=== PATIENT | male | born 1960 | race Caucasian/White ===

== ENCOUNTER 2019-02-06 08:03 | Emergency (ER) | payer MEDICAID ==
[2019-02-06 08:27] VITALS: BP 117/87
--- NOTE | 2019-02-06 09:03 | EDM.PDOC ---
ED HPI GENERAL MEDICAL PROBLEM - General Chief Complaint: General Stated Complaint: DIAHREA Time Seen by Provider: 02/06/19 08:15 Source of Information: Reports: Patient History Limitations: Reports: No Limitations - History of Present Illness INITIAL COMMENTS - FREE TEXT/NARRATIVE: According to patient he claims that he has been having diarrhea for the past 2 wks now. Stools are frequent and watery. Has not noticed any blood or mucus in the stool. HE claims he has been eating his normal diet but not as well as he should. No abdominal pain or bloating. No loss of weight. He claims he has had 6 loose stools since morning. Vomited few times. No fever or chills. No other complaints. Onset: Gradual Duration: Week(s): (2), Constant, Getting Worse Severity: Mild Associated Symptoms: Reports: Nausea/Vomiting, Weakness. Denies: Confusion, Chest Pain, Cough, Diaphoresis, Fever/Chills, Rash, Seizure, Shortness of Breath , Syncope - Related Data Allergies Allergy/AdvReac Type Severity Reaction Status Date / Time No Known Allergies Allergy Verified 06/05/15 14:47 Home Meds: Home Meds Metoprolol Tartrate [Lopressor] 25 mg PO BID 05/25/13 [History] Simvastatin 40 mg PO DAILY 05/25/13 [History] Celecoxib [CeleBREX] 100 mg PO BID 06/05/15 [History] Pregabalin [Lyrica] 150 mg PO BID 06/05/15 [History] Past Medical History HEENT History: Reports: Sinusitis Neurological History: Reports: Migraines Psychiatric History: Reports: Addiction, Anxiety, Bipolar, Depression - Infectious Disease History Infectious Disease History: Reports: Chicken Pox, Mumps ED ROS GENERAL - Review of Systems Review Of Systems: See Below Constitutional: Reports: Weakness. Denies: Fever, Chills, Night Sweats, Diaphoresis HEENT: Denies: Ear Pain, Rhinitis, Throat Pain Respiratory: Denies: Shortness of Breath, Pleuritic Chest Pain, Cough, Sputum Cardiovascular: Denies: Chest Pain, Lightheadedness GI/Abdominal: Reports: Diarrhea, Flatus, Nausea, Vomiting. Denies: Abdominal Pain, Constipation, Distension : Denies: Flank Pain, Frequency Musculoskeletal: Denies: Joint Pain, Joint Swelling Skin: Denies: Bruising, Pruritis, Rash Neurological: Denies: Confusion, Dizziness, Headache, Numbness, Tingling Psychiatric: Denies: Agitation, Anxiety, Confusion, Cravings, Depression ED EXAM, GENERAL - Physical Exam Exam: See Below Exam Limited By: No Limitations General Appearance: Alert, WD/WN, No Apparent Distress Eye Exam: Bilateral Eye: EOMI, PERRL Ears: Normal External Exam, Normal Canal, Hearing Grossly Normal, Normal TMs Ear Exam: Bilateral Ear: Auricle Normal, Canal Normal, TM normal Nose: Normal Inspection, Normal Mucosa, No Blood Throat/Mouth: Normal Inspection, Normal Lips, Normal Teeth, Normal Gums, Normal Oropharynx, Normal Voice, No Airway Compromise Head: Atraumatic, Normocephalic Neck: Normal Inspection, Supple, Non-Tender, Full Range of Motion Respiratory/Chest: No Respiratory Distress, Lungs Clear, Normal Breath Sounds, No Accessory Muscle Use, Chest Non-Tender Cardiovascular: Normal Peripheral Pulses, Regular Rate, Rhythm, No Edema, No Gallop, No JVD, No Murmur, No Rub GI/Abdominal: Soft, Non-Tender, No Organomegaly, No Distention, No Abnormal Bruit, No Mass, Abnormal Bowel Sounds (slightly hyperactive bowel sounds) Extremities: Normal Inspection, Normal Range of Motion, Non-Tender, Normal Capillary Refill, No Pedal Edema Neurological: Alert, Oriented, CN II-XII Intact, Normal Cognition, Normal Gait, Normal Reflexes, No Motor/Sensory Deficits Course - Vital Signs Text/Narrative:: Pt has had 2 wks history of loose stools and vomiting. His hydration appears appropriate. On clinical exam slightly hyperactive bowel sounds. Pt's CBC is normal . His CMP shows normal electrolytes with normal renal functions( BUN of 12 and Creat of 1.1) and normal liver liver functions.This does not appear like bacterial dysentery, more like on going viral gastroenteritis with normal hydration. I have advised patient some diet changes. He should avoid meat and mild products. Also increase consumption of apples and bananas, which should help form solid stool. Will prescribe zofran 4mg 3 times daily for nausea. Also considering that the diarrhea has been going on for 2 wks should get stool culture done. Feco-oral contamination can be a cause, advised good hand washing. Followup if lethargic, weakness, decreased oral intake or decreased urinary output. Pt has run out of his simvastatin and cetirizine, which were refilled in the emergency room for 1 month. Last Recorded V/S: Last Vital Signs Temp 98.2 F 02/06/19 08:24 Pulse 89 02/06/19 08:24 Resp 16 02/06/19 08:24 BP 117/87 02/06/19 08:24 Pulse Ox 98 02/06/19 08:24 - Orders/Labs/Meds Labs: Laboratory Tests 02/06/19 02/06/19 Range/Units 08:20 08:20 WBC 9.9 (4.0-11.0) K/uL RBC 6.20 (4.50-6.50) M/uL Hgb 18.3 H* (13.0-18.0) g/dL Hct 52.2 (40.0-54.0) % MCV 84 (76-96) fL MCH 29.5 (27.0-32.0) pg MCHC 35.1 H (31.0-35.0) g/dL RDW 15.8 (11.0-16.0) % Plt Count 164 D (150-400) K/uL MPV 11.4 H (6.0-10.0) fL Neut % (Auto) 65.8 (45.0-70.0) % Lymph % (Auto) 18.0 L (20.0-40.0) % [place] % (Auto) 5.5 (3.0-10.0) % Eos % (Auto) 10.4 H (1.0-5.0) % Baso % (Auto) 0.3 (0.0-0.5) % Neut # (Auto) 6.53 (2.00-7.50) K/uL Lymph # (Auto) 1.79 (1.50-4.00) K/uL [place] # (Auto) 0.55 (0.20-0.80) K/uL Eos # (Auto) 1.03 H (0.04-0.40) K/uL Baso # (Auto) 0.03 (0.02-0.10) K/uL Sodium 143 (136-145) mmol/L Potassium 3.7 (3.5-5.1) mmol/L Chloride 105 (98-107) mmol/L Carbon Dioxide 26.7 (21.0-32.0) mmol/L Anion Gap 15.0 (5.0-15.0) mmol/L BUN 12 (8-26) mg/dL Creatinine 1.14 D (0.70-1.30) mg/dL Est Cr Clr Drug Dosing 83.39 mL/min Estimated GFR (MDRD) > 60 (>60) MLS/MIN BUN/Creatinine Ratio 10.5 (6-25) Glucose 112 H (74-100) mg/dL Calcium 9.1 (8.5-10.1) mg/dL Total Bilirubin 0.7 D (0.0-1.0) mg/dL AST 49 H (15-37) U/L ALT 95 H (12-78) U/L Alkaline Phosphatase 105 (46-116) U/L Total Protein 7.1 (6.4-8.2) g/dL Albumin 3.7 (3.4-5.0) g/dL Globulin 3.4 (2.2-4.2) g/dL Albumin/Globulin Ratio 1.1 (0.8-2.0) Departure - Departure Time of Disposition: 09:15 Disposition: Home, Self-Care 01 Condition: Fair Clinical Impression: Viral gastroenteritis - Discharge Information *PRESCRIPTION DRUG MONITORING PROGRAM REVIEWED*: Not Applicable *COPY OF PRESCRIPTION DRUG MONITORING REPORT IN PATIENT RUFUS: Not Applicable Instructions: Viral Gastroenteritis, Adult, [id number] Referrals: PCP,None [Primary Care Provider] - Forms: ED Department Discharge Additional Instructions: Pt has had 2 wks history of loose stools and vomiting. His hydration appears appropriate. On clinical exam slightly hyperactive bowel sounds. Pt's CBC is normal . His CMP shows normal electrolytes with normal renal functions( BUN of 12 and Creat of 1.1) and normal liver liver functions.This does not appear like bacterial dysentery, more like on going viral gastroenteritis with normal hydration. I have advised patient some diet changes. He should avoid meat and mild products. Also increase consumption of apples and bananas, which should help form solid stool. Will prescribe zofran 4mg 3 times daily for nausea. Also considering that the diarrhea has been going on for 2 wks should get stool culture done. Feco-oral contamination can be a cause, advised good hand washing. Followup if lethargic, weakness, decreased oral intake or decreased urinary output. Pt has run out of his simvastatin and cetirizine, which were refilled in the emergency room for 1 month. - Problem List & Annotations (1) Viral gastroenteritis SNOMED Code(s): 708262187 Code(s): A08.4 - VIRAL INTESTINAL INFECTION, UNSPECIFIED Status: Acute Current Visit: Yes - Problem List Review Problem List Initiated/Reviewed/Updated: Yes - Assessment/Plan Assessment:: Viral Gastroenteritis Plan: Pt has had 2 wks history of loose stools and vomiting. His hydration appears appropriate. On clinical exam slightly hyperactive bowel sounds. Pt's CBC is normal . His CMP shows normal electrolytes with normal renal functions( BUN of 12 and Creat of 1.1) and normal liver liver functions.This does not appear like bacterial dysentery, more like on going viral gastroenteritis with normal hydration. I have advised patient some diet changes. He should avoid meat and mild products. Also increase consumption of apples and bananas, which should help form solid stool. Will prescribe zofran 4mg 3 times daily for nausea. Also considering that the diarrhea has been going on for 2 wks should get stool culture done. Feco-oral contamination can be a cause, advised good hand washing. Followup if lethargic, weakness, decreased oral intake or decreased urinary output. Pt has run out of his simvastatin and cetirizine, which were refilled in the emergency room for 1 month.
== END 2019-02-06 09:22 | disposition home or self-care (01) ==
LOC: LB.ED 08:03
DX: A08.4 Viral intestinal infection, unspecified (principal); F31.9 Bipolar disorder, unspecified; F41.9 Anxiety disorder, unspecified; F32.9 Major depressive disorder, single episode, unspecified; Z79.899 Other long term (current) drug therapy
CPT/HCPCS: 36415; 80053; 85025; 99283

== ENCOUNTER 2019-06-30 08:53 | Emergency (ER) | payer MEDICAID ==
[2019-06-30 10:20] VITALS: BP 122/70; PULSE 74
--- NOTE | 2019-06-30 13:00 | ER ---
HISTORY OF PRESENT ILLNESS: A 58-year-old male, here with complaints of pain in the left thigh area pointing to the lateral side of the mid thigh. He states this started about 4 a.m. this morning. It seems like it is hurting more when the patient raises his leg. When he lowers his leg, the pain gets better and standing seems to be okay, just with some dull aching. The patient denies any injury to this area. He is concerned about a blood clot. He has no recent history of illness or being bedridden. He has not taken any long car trips or any sort of situation where he has been immobile or very sedentary for several hours or longer. The patient denies any shortness of breath. He has not been running a fever and does not feel sick. OBJECTIVE: GENERAL APPEARANCE: The patient is awake and alert. No obvious distress. VITAL SIGNS: Reviewed. Blood pressure 122/70. He is afebrile, pulse 74, respirations 16. EXTREMITIES: Examining the right lateral thigh reveals the skin is intact. There is no swelling or discoloration with palpation of the midthigh area. There is just minimal tenderness. NEUROLOGIC: The patient is able to stand and walk with a normal smooth gait at this time. LABORATORY DATA AND X-RAY: CBC is normal. Hemoglobin is good. D-dimer is normal at 383, and a basic metabolic panel shows that his sodium and potassium levels are good. Blood sugar is 116. DIAGNOSIS: Myalgia of the right thigh. TREATMENT PLAN: I advised the patient to use heat. Activity as tolerated. If his symptoms do not improve over the next couple of days, he should follow up with his primary care provider for some imaging studies. CRS/MODL /[id number]
== END 2019-06-30 10:35 | disposition home or self-care (01) ==
LOC: LB.ED 08:53
DX: M79.10 Myalgia, unspecified site (principal)
CPT/HCPCS: 36415; 80048; 85025; 85379; 99283

== ENCOUNTER 2019-12-20 08:25 | Emergency (ER) | payer MEDICAID ==
[2019-12-20] MEDS ORDERED: Magnesium Citrate Solution 296 ML Bottle ONE (08:30)
--- NOTE | 2019-12-20 09:09 | EDM.PDOC ---
ED HPI GENERAL MEDICAL PROBLEM - General Chief Complaint: Abdominal Pain Stated Complaint: CONSTIPATION UNABLE TO URINATE Time Seen by Provider: 12/20/19 08:45 Source of Information: Reports: Patient History Limitations: Reports: No Limitations - History of Present Illness INITIAL COMMENTS - FREE TEXT/NARRATIVE: pt presents to the ER with complaint of constipation and urinary retention since last night. pt states he has been experiencing these symptoms since yesterday with most recent BM yesterday morning. pt states "this is the most constipated I've been in years" with coinciding intermittent nausea. pain in lower abdomen increases with palpation. he denies fever, chills, back pain, appetite change, change to fluid consumption. Abdominal Pain Score (Numeric/FACES): 7 - Related Data Allergies Allergy/AdvReac Type Severity Reaction Status Date / Time No Known Allergies Allergy Verified 06/05/15 14:47 Home Meds: Home Meds Metoprolol Tartrate [Lopressor] 25 mg PO BID 05/25/13 [History] Simvastatin 40 mg PO DAILY 05/25/13 [History] Aspirin 325 mg PO DAILY 06/30/19 [History] Cetirizine [ZyrTEC] 10 mg PO DAILY PRN 06/30/19 [History] Ibuprofen 600 mg PO BID PRN 06/30/19 [History] Past Medical History HEENT History: Reports: Sinusitis Neurological History: Reports: Migraines Psychiatric History: Reports: Addiction, Anxiety, Bipolar, Depression - Infectious Disease History Infectious Disease History: Reports: Chicken Pox, Measles, Mumps - Past Surgical History Other Musculoskeletal Surgeries/Procedures:: surgery knees bilaterally Social & Family History - Family History Family Medical History: Noncontributory - Caffeine Use Caffeine Use: Reports: Coffee ED ROS GENERAL - Review of Systems Review Of Systems: Comprehensive ROS is negative, except as noted in HPI. ED EXAM, GENERAL - Physical Exam Exam: See Below Exam Limited By: No Limitations General Appearance: Alert, WD/WN, No Apparent Distress Eye Exam: Bilateral Eye: EOMI, PERRL Throat/Mouth: Normal Inspection, Normal Teeth, Normal Oropharynx Respiratory/Chest: No Respiratory Distress, Lungs Clear, Normal Breath Sounds, No Accessory Muscle Use Cardiovascular: Normal Peripheral Pulses, Regular Rate, Rhythm, No Edema, No Gallop Peripheral Pulses: 2+: Radial (L), Radial (R), Posterior Tibial (L), Posterior Tibial (R) GI/Abdominal: Normal Bowel Sounds, Soft, No Organomegaly, No Distention (no guarding), Tender (suprapubic TTP) Back Exam: Normal Inspection, Full Range of Motion Extremities: Normal Inspection, Normal Range of Motion, Non-Tender Neurological: Alert, Oriented, CN II-XII Intact, Normal Cognition Psychiatric: Normal Affect, Normal Mood Skin Exam: Warm, Dry, Intact Lymphatic: No Adenopathy Course - Vital Signs Last Recorded V/S: Last Vital Signs Temp 95 F L 12/20/19 08:43 Pulse 81 12/20/19 08:43 Resp 16 12/20/19 08:43 BP 154/89 H 12/20/19 08:43 Pulse Ox 99 12/20/19 08:43 - Orders/Labs/Meds Orders: Active Orders 24 hr Category Date Time Status Bladder Scan [RC] ASDIRECTED Care 12/20/19 09:00 Active Insert Urinary Catheter [OM.PC] Q24H Care 12/20/19 09:00 Ordered Urinary Catheter Assessment [RC] ASDIRECTED Care 12/20/19 09:00 Active Labs: Laboratory Tests 12/20/19 12/20/19 12/20/19 Range/Units 09:00 09:00 09:00 WBC 5.9 D (4.0-11.0) K/uL RBC 4.89 (4.50-6.50) M/uL Hgb 14.8 (13.0-18.0) g/dL Hct 44.0 (40.0-54.0) % MCV 90 (76-96) fL MCH 30.3 (27.0-32.0) pg MCHC 33.6 (31.0-35.0) g/dL RDW 14.3 (11.0-16.0) % Plt Count 149 L (150-400) K/uL MPV 11.4 H (6.0-10.0) fL Neut % (Auto) 56.1 (45.0-70.0) % Lymph % (Auto) 28.6 (20.0-40.0) % [place] % (Auto) 10.2 H (3.0-10.0) % Eos % (Auto) 4.9 (1.0-5.0) % Baso % (Auto) 0.2 (0.0-0.5) % Neut # (Auto) 3.29 (2.00-7.50) K/uL Lymph # (Auto) 1.68 (1.50-4.00) K/uL [place] # (Auto) 0.60 (0.20-0.80) K/uL Eos # (Auto) 0.29 (0.04-0.40) K/uL Baso # (Auto) 0.01 L (0.02-0.10) K/uL Sodium 141 (136-145) mmol/L Potassium 4.0 (3.5-5.1) mmol/L Chloride 106 (98-107) mmol/L Carbon Dioxide 29.1 D (21.0-32.0) mmol/L Anion Gap 9.9 (5.0-15.0) mmol/L BUN 14 (8-26) mg/dL Creatinine 0.92 (0.70-1.30) mg/dL Est Cr Clr Drug Dosing TNP Estimated GFR (MDRD) > 60 (>60) MLS/MIN BUN/Creatinine Ratio 15.2 (6-25) Glucose 105 H (74-100) mg/dL Calcium 8.9 (8.5-10.1) mg/dL Total Bilirubin 0.6 (0.0-1.0) mg/dL AST 45 H (15-37) U/L ALT 69 (12-78) U/L Alkaline Phosphatase 81 (46-116) U/L Total Protein 6.8 (6.4-8.2) g/dL Albumin 3.6 (3.4-5.0) g/dL Globulin 3.2 (2.2-4.2) g/dL Albumin/Globulin Ratio 1.1 (0.8-2.0) Urine Color Urine Appearance (CLEAR) Urine pH (5.0-8.0) Ur Specific [place] (1.003-1.030) Urine Protein (NEGATIVE) mg/dL Urine Glucose (UA) (NEGATIVE) mg/dL Urine Ketones (NEGATIVE) mg/dL Urine Occult Blood (NEGATIVE) Urine Nitrite (NEGATIVE) Urine Bilirubin (NEGATIVE) Urine Urobilinogen (0.2-1.0) E.U./dL Ur Leukocyte Esterase (NEGATIVE) Ethyl Alcohol < 3.0 (<3.0) mg/dL 12/20/19 Range/Units 09:28 WBC (4.0-11.0) K/uL RBC (4.50-6.50) M/uL Hgb (13.0-18.0) g/dL Hct (40.0-54.0) % MCV (76-96) fL MCH (27.0-32.0) pg MCHC (31.0-35.0) g/dL RDW (11.0-16.0) % Plt Count (150-400) K/uL MPV (6.0-10.0) fL Neut % (Auto) (45.0-70.0) % Lymph % (Auto) (20.0-40.0) % [place] % (Auto) (3.0-10.0) % Eos % (Auto) (1.0-5.0) % Baso % (Auto) (0.0-0.5) % Neut # (Auto) (2.00-7.50) K/uL Lymph # (Auto) (1.50-4.00) K/uL [place] # (Auto) (0.20-0.80) K/uL Eos # (Auto) (0.04-0.40) K/uL Baso # (Auto) (0.02-0.10) K/uL Sodium (136-145) mmol/L Potassium (3.5-5.1) mmol/L Chloride (98-107) mmol/L Carbon Dioxide (21.0-32.0) mmol/L Anion Gap (5.0-15.0) mmol/L BUN (8-26) mg/dL Creatinine (0.70-1.30) mg/dL Est Cr Clr Drug Dosing Estimated GFR (MDRD) (>60) MLS/MIN BUN/Creatinine Ratio (6-25) Glucose (74-100) mg/dL Calcium (8.5-10.1) mg/dL Total Bilirubin (0.0-1.0) mg/dL AST (15-37) U/L ALT (12-78) U/L Alkaline Phosphatase (46-116) U/L Total Protein (6.4-8.2) g/dL Albumin (3.4-5.0) g/dL Globulin (2.2-4.2) g/dL Albumin/Globulin Ratio (0.8-2.0) Urine Color Yellow Urine Appearance Clear (CLEAR) Urine pH 6.0 (5.0-8.0) Ur Specific [place] 1.020 (1.003-1.030) Urine Protein Negative (NEGATIVE) mg/dL Urine Glucose (UA) Negative (NEGATIVE) mg/dL Urine Ketones Negative (NEGATIVE) mg/dL Urine Occult Blood Negative (NEGATIVE) Urine Nitrite Negative (NEGATIVE) Urine Bilirubin Negative (NEGATIVE) Urine Urobilinogen 0.2 (0.2-1.0) E.U./dL Ur Leukocyte Esterase Negative (NEGATIVE) Ethyl Alcohol (<3.0) mg/dL Departure - Departure Time of Disposition: 10:23 Disposition: Home, Self-Care 01 Condition: Good Clinical Impression: Constipation Qualifiers: Constipation type: unspecified constipation type Qualified Code(s): K59.00 - Constipation, unspecified - Discharge Information *PRESCRIPTION DRUG MONITORING PROGRAM REVIEWED*: Not Applicable *COPY OF PRESCRIPTION DRUG MONITORING REPORT IN PATIENT RUFUS: Not Applicable Instructions: Constipation, Adult Referrals: PCP,None [Primary Care Provider] - Forms: ED Department Discharge, ED Return to Work/School Form Additional Instructions: drink at least 100oz of water a day when you get home, drink the whole bottle of magnesium citrate as directed follow up in the clinic in a week or so return to the ER if symptoms persist (you don't poop in 12 hours after taking the mag citrate), or worsen at any time Sepsis Event Note (ED) - Focused Exam Vital Signs: Vital Signs Temp Pulse Resp BP Pulse Ox 12/20/19 08:43 95 F L 81 16 154/89 H 99 - Problem List & Annotations (1) Constipation SNOMED Code(s): 42006430 Code(s): K59.00 - CONSTIPATION, UNSPECIFIED Status: Acute Current Visit: Yes Qualifiers: Constipation type: unspecified constipation type Qualified Code(s): K59.00 - Constipation, unspecified - Problem List Review Problem List Initiated/Reviewed/Updated: Yes - My Orders Last 24 Hours: My Active Orders 12/20/19 09:00 Bladder Scan [RC] ASDIRECTED Insert Urinary Catheter [OM.PC] Q24H Urinary Catheter Assessment [RC] ASDIRECTED - Assessment/Plan Last 24 Hours: My Active Orders 12/20/19 09:00 Bladder Scan [RC] ASDIRECTED Insert Urinary Catheter [OM.PC] Q24H Urinary Catheter Assessment [RC] ASDIRECTED Assessment:: assessment: constipation plan: mag citrate constipation education and return precaution as discussed. increase water intake. other differentials considered opioid constipation, gastroenteritis, IBS
[2019-12-20 15:10] VITALS: BP 154/89; PULSE 81
== END 2019-12-20 10:40 | disposition home or self-care (01) ==
LOC: LB.ED 08:25
DX: K59.00 Constipation, unspecified (principal); Z79.82 Long term (current) use of aspirin; Z79.899 Other long term (current) drug therapy
CPT/HCPCS: 36415; 51702; 51798; 80053; 80307; 81003; 85025; 99283; A9270

== ENCOUNTER 2021-04-06 12:35 | Emergency (ER) | payer MEDICAID ==
[2021-04-06 14:38] VITALS: BP 146/82; PULSE 60
--- NOTE | 2021-04-06 15:39 | EDM.PDOC ---
ED HPI GENERAL MEDICAL PROBLEM - General Chief Complaint: Respiratory Problem Stated Complaint: CHEST PAIN/ COVID SYPMTOMS Time Seen by Provider: 04/06/21 13:20 Source of Information: Reports: Patient History Limitations: Reports: No Limitations - History of Present Illness INITIAL COMMENTS - FREE TEXT/NARRATIVE: This patient presents to the emergency department for evaluation of cough and chest pain. He states he began feeling unwell several days ago, approximately April 02. On that day he felt achy, may be that he had a fever, with a cough and runny nose. He seemed a little better over the weekend and then began feeling ill again yesterday. Today he was seen in the clinic because he had chest pain along with a cough. He was referred to the ER for evaluation for Covid. He did have a Covid swab prior to entry into the building which was negative. He states he has not had a fever in the past couple of days but has continued to cough and sometimes has chest pain along with a cough. His appetite is decreased and he has had 1 vomiting episode today. He also is complaining of nasal congestion and a runny nose. He denies other concerns or complaints. - Related Data Allergies Allergy/AdvReac Type Severity Reaction Status Date / Time No Known Allergies Allergy Verified 04/06/21 14:23 Home Meds: Home Meds Metoprolol Tartrate [Lopressor] 25 mg PO BID 05/25/13 [History] Simvastatin 40 mg PO DAILY 05/25/13 [History] Aspirin 325 mg PO DAILY 06/30/19 [History] Cetirizine [ZyrTEC] 10 mg PO DAILY PRN 06/30/19 [History] Ibuprofen 600 mg PO BID PRN 06/30/19 [History] Past Medical History HEENT History: Reports: Sinusitis Cardiovascular History: Reports: High Cholesterol, Hypertension Gastrointestinal History: Reports: GERD Musculoskeletal History: Reports: Back Pain, Chronic Neurological History: Reports: Migraines Psychiatric History: Reports: Addiction, Anxiety, Bipolar, Depression - Infectious Disease History Infectious Disease History: Reports: Chicken Pox, Measles, Mumps - Past Surgical History HEENT Surgical History: Reports: Eye Surgery, Other (See Below) Other HEENT Surgeries/Procedures: Prosthetic L eye Other Musculoskeletal Surgeries/Procedures:: surgery knees bilaterally Social & Family History - Family History Family Medical History: No Pertinent Family History - Tobacco Use Tobacco Use Status *Q: Current Every Day Tobacco User Years of Tobacco use: 45 Packs/Tins Daily: 1 - Caffeine Use Caffeine Use: Reports: Coffee - Recreational Drug Use Recreational Drug Use: No ED ROS GENERAL - Review of Systems Review Of Systems: Comprehensive ROS is negative, except as noted in HPI. ED EXAM, GENERAL - Physical Exam Exam: See Below Exam Limited By: No Limitations General Appearance: No Apparent Distress Eye Exam: Bilateral Eye: PERRL Ears: Normal External Exam, Normal TMs Nose: Normal Inspection, Nasal Drainage, Clear Rhinorrhea Throat/Mouth: Normal Inspection, Other (Posterior pharynx erythematous.) Head: Atraumatic, Normocephalic Neck: Normal Inspection, Full Range of Motion Respiratory/Chest: No Respiratory Distress, No Accessory Muscle Use, Other (Mild inspiratory and expiratory wheezes in all wright.) Cardiovascular: Regular Rate, Rhythm Back Exam: Normal Inspection Extremities: Normal Inspection, Normal Range of Motion Neurological: Alert, Oriented Course - Vital Signs Last Recorded V/S: Last Vital Signs Temp 36.6 C 04/06/21 13:10 Pulse 60 04/06/21 13:10 Resp 18 04/06/21 13:10 BP 146/82 H 04/06/21 13:10 Pulse Ox 98 04/06/21 13:10 - Orders/Labs/Meds Orders: Active Orders 24 hr Category Date Time Status Chest 2V [CR] Stat Exams 04/06/21 14:38 Taken Labs: Laboratory Tests 04/06/21 Range/Units 13:10 SARS CoV-2 RNA Rapid TYLER Negative - Re-Assessments/Exams Free Text/Narrative Re-Assessment/Exam: This patient presents to the emergency department for evaluation of cough. This history and clinical findings are most consistent with an upper respiratory tract infection that is non-Covid in nature. It is likely another type of viral illness. At this time there are no signs of serious bacterial infection such as an otitis media, retropharyngeal abscess, epiglottitis, peritonsillar abscess, strep pharyngitis, pneumonia, sinusitis, meningitis, or bacteremia. The chest x-ray was done which was negative for acute findings. Given his lack of fever, no hypoxia no respiratory distress I do not feel he needs admission to the hospital at this time. He states that he does not have chest pain except when coughing. He has no concerning gastrointestinal symptoms at this point and no signs of dehydration. He was instructed to follow-up with his primary care provider as needed. 04/06/21 15:37 Departure - Departure Time of Disposition: 15:00 Disposition: Home, Self-Care 01 Condition: Good Clinical Impression: Upper respiratory tract infection - Discharge Information Referrals: PCP,None [Primary Care Provider] - Forms: ED Department Discharge Sepsis Event Note (ED) - Focused Exam Vital Signs: Vital Signs Temp Pulse Resp BP Pulse Ox 04/06/21 13:10 36.6 C 60 18 146/82 H 98 - My Orders Last 24 Hours: My Active Orders 04/06/21 14:38 Chest 2V [CR] Stat - Assessment/Plan Last 24 Hours: My Active Orders 04/06/21 14:38 Chest 2V [CR] Stat
--- NOTE | 2021-04-06 17:50 | CR ---
DATE OF SERVICE: 04/06/21 CLINICAL DATA: cough, wheeze, COVID (-) PA AND LATERAL CHEST: Comparison is made to a prior exam dated 01/09/14. The heart size is normal. There is a poorly defined ground glass opacity within the right mid lung lateral to the right hilum suspicious for viral pneumonia. No other infiltrates. No consolidation. No pneumothorax. No pleural effusions. The heart size is normal. There is calcification of the aortic arch. There is degenerative disc disease throughout the thoracic spine. [id number] MTDD
== END 2021-04-06 15:08 | disposition home or self-care (01) ==
LOC: LB.ED 12:35
DX: J06.9 Acute upper respiratory infection, unspecified (principal); E78.00 Pure hypercholesterolemia, unspecified; I10 Essential (primary) hypertension; K21.9 Gastro-esophageal reflux disease without esophagitis; Z72.0 Tobacco use; Z79.82 Long term (current) use of aspirin; Z79.899 Other long term (current) drug therapy; Z20.822 Contact with and (suspected) exposure to COVID-19
CPT/HCPCS: 71046; 99283-25; U0002

== ENCOUNTER 2022-12-06 11:02 | Emergency (ER) | payer MEDICAID ==
[2022-12-06] MEDS ORDERED: LORazepam 2 MG/ML SDV IVPUSH ONE ×2 (11:40→13:22)
[2022-12-06] MEDS ORDERED: Sodium Chloride 0.9% 1,000 ML IV ONE (11:43)
[2022-12-06] MEDS ORDERED: Sodium Chloride 0.9% 10 ML Syringe FLUSH PRN (11:55)
[2022-12-06] MEDS ORDERED: Ketamine 200 MG/20 ML MDV IM ONE (11:56)
[2022-12-06 12:01] LABS: HEMATOCRIT 43.6 % (40.0-54.0); HEMOGLOBIN 15.3 g/dL (13.0-18.0); MEAN CORPUSCULAR HGB CONC 35.1 g/dL (31.0-35.0); MEAN PLATELET VOLUME 10.1 fL (6.0-10.0); RED BLOOD CELL COUNT 4.78 M/uL (4.50-6.50); RED CELL DISTRIBUTION WIDTH 15.9 % (11.0-16.0); WHITE BLOOD CELL COUNT,WBC 8.5 K/uL (4.0-11.0)
[2022-12-06 12:15] LABS: A/G RATIO 0.9 (0.8-2.0); ALANINE AMINOTRANSFERASE,ALT 74 U/L (12-78); ALBUMIN 3.2 g/dL (3.4-5.0); ALKALINE PHOSPHATASE 122 U/L (46-116); BILIRUBIN TOTAL 0.3 mg/dL (0.0-1.0); BLOOD UREA NITROGEN,BUN 17 mg/dL (8-26); CALCIUM 8.3 mg/dL (8.5-10.1); CARBON DIOXIDE,CO2 27.5 mmol/L (21.0-32.0); CHLORIDE,CL 107 mmol/L (98-107); CREATININE 0.63 mg/dL (0.70-1.30); ESTIMATED GFR 107 mL/min (>60); GLUCOSE RANDOM 89 mg/dL (74-100); MAGNESIUM 1.5 mg/dL (1.8-2.4); PHOSPHORUS 2.9 mg/dL (2.5-4.9); POTASSIUM,K 3.5 mmol/L (3.5-5.1); PROTEIN TOTAL,TP 6.6 g/dL (6.4-8.2); SODIUM,NA 143 mmol/L (136-145)
[2022-12-06] MEDS ORDERED: Thiamine 100 MG in Sodium Chloride 0.9% 100 ML IV ONE (12:34)
[2022-12-06 13:18] LABS: APPEARANCE,URINE CLEAR (CLEAR); BILIRUBIN,URINE NEGATIVE (NEGATIVE); COLOR,URINE YELLOW; GLUCOSE,URINE NEGATIVE (NEGATIVE); KETONES,URINE NEGATIVE (NEGATIVE); LEUKOCYTE ESTERASE,URINE NEGATIVE (NEGATIVE); NITRITE,URINE NEGATIVE (NEGATIVE); OCCULT BLOOD,URINE NEGATIVE (NEGATIVE); PROTEIN,URINE NEGATIVE (NEGATIVE); UROBILINOGEN,URINE 0.2 E.U./dL (0.2-1.0)
[2022-12-06 13:22] VITALS: BP 142/114; PULSE 105
[2022-12-06 13:25] LABS: AMPHETAMINES SCREEN, URINE NEGATIVE (NEGATIVE); BARBITURATE SCREEN,URINE NEGATIVE (NEGATIVE); BENZODIAZEPINES SCREEN,URINE NEGATIVE (NEGATIVE); METHADONE SCREEN, URINE NEGATIVE (NEGATIVE); METHAMPHETAMINES SCREEN, URINE NEGATIVE (NEGATIVE); OXYCODONE SCREEN,URINE NEGATIVE (NEGATIVE); THC SCREEN,URINE 50 NG/ML POSITIVE (NEGATIVE)
[2022-12-06] MEDS ORDERED: Sodium Chloride 0.9% 1,000 ML IV SCH (15:00)
[2022-12-06] MEDS: LORazepam 2 MG/ML SDV IVPUSH PRN ×2 (16:18→18:29)
[2022-12-06 16:47] LABS: ASPARTATE AMNIOTRANSFERASE,AST 99 U/L (15-37)
[2022-12-06] MEDS ORDERED: Loratadine 10 MG Tab PO ONE (20:00)
[2022-12-06] MEDS ORDERED: LORazepam 2 MG/ML SDV IM ONE (20:31)
== END 2022-12-06 21:10 ==
LOC: LB.ED 11:02
DX: F10.10 Alcohol abuse, uncomplicated (principal); E78.00 Pure hypercholesterolemia, unspecified; I10 Essential (primary) hypertension; K21.9 Gastro-esophageal reflux disease without esophagitis; Z79.899 Other long term (current) drug therapy; Z79.82 Long term (current) use of aspirin; Y90.8 Blood alcohol level of 240 mg/100 ml or more
CPT/HCPCS: 36415; 80053; 80307; 81003; 83605; 83735; 84100; 85027; 96372; 96374; 96376; 99285; A9270; J2060; J3411; J3490; J7030

== ENCOUNTER 2022-12-14 11:21 | Emergency (ER) | payer MEDICAID ==
[2022-12-14 12:29] LABS: APPEARANCE,URINE CLEAR (CLEAR); BILIRUBIN,URINE NEGATIVE (NEGATIVE); COLOR,URINE YELLOW; GLUCOSE,URINE NEGATIVE (NEGATIVE); KETONES,URINE NEGATIVE (NEGATIVE); LEUKOCYTE ESTERASE,URINE NEGATIVE (NEGATIVE); NITRITE,URINE NEGATIVE (NEGATIVE); OCCULT BLOOD,URINE NEGATIVE (NEGATIVE); PH,URINE 5.5 (5.0-8.0); PROTEIN,URINE NEGATIVE (NEGATIVE); UROBILINOGEN,URINE 0.2 E.U./dL (0.2-1.0)
[2022-12-14 12:33] LABS: RBC,URINE NOT SEEN /HPF; WBC,URINE 0-5 /HPF
[2022-12-14 12:36] VITALS: BP 144/90; PULSE 100
[2022-12-14] MEDS: Sodium Phosphate,Monobasic/Sodium Phosphate,Dibasic Enema 133 ML Bottle RECTAL ONE (12:55)
== END 2022-12-14 14:01 | disposition home or self-care (01) ==
LOC: LB.ED 11:21
DX: K59.00 Constipation, unspecified (principal); N40.1 Benign prostatic hyperplasia with lower urinary tract symptoms; E78.00 Pure hypercholesterolemia, unspecified; I10 Essential (primary) hypertension; K21.9 Gastro-esophageal reflux disease without esophagitis; Z79.899 Other long term (current) drug therapy; Z79.82 Long term (current) use of aspirin
CPT/HCPCS: 74019; 81001; 99283; A9270-GY

== ENCOUNTER 2023-02-06 13:40 | Emergency (ER) | payer MEDICAID ==
[2023-02-06] MEDS ORDERED: Sodium Chloride 0.9% 1,000 ML IV ONE (14:00)
[2023-02-06 14:31] LABS: APPEARANCE,URINE CLEAR (CLEAR); BILIRUBIN,URINE NEGATIVE (NEGATIVE); COLOR,URINE YELLOW; GLUCOSE,URINE NEGATIVE (NEGATIVE); KETONES,URINE 40 mg/dL (NEGATIVE); LEUKOCYTE ESTERASE,URINE NEGATIVE (NEGATIVE); NITRITE,URINE NEGATIVE (NEGATIVE); OCCULT BLOOD,URINE TRACE-LYSED (NEGATIVE); PROTEIN,URINE TRACE mg/dL (NEGATIVE); UROBILINOGEN,URINE 0.2 E.U./dL (0.2-1.0)
[2023-02-06 14:34] LABS: BASOPHILS ABSOLUTE AUTO 0.04 K/uL (0.02-0.10); BASOPHILS PERCENT AUTO 0.5 % (0.0-0.5); EOSINOPHILS ABSOLUTE AUTO 0.05 K/uL (0.04-0.40); EOSINOPHILS PERCENT AUTO 0.6 % (1.0-5.0); HEMATOCRIT 45.1 % (40.0-54.0); HEMOGLOBIN 15.7 g/dL (13.0-18.0); LYMPHOCYTES ABSOLUTE AUTO 1.92 K/uL (1.50-4.00); LYMPHOCYTES PERCENT AUTO 24.3 % (20.0-40.0); MEAN CORPUSCULAR HEMOGLOBIN 32.6 pg (27.0-32.0); MEAN CORPUSCULAR HGB CONC 34.8 g/dL (31.0-35.0); MEAN CORPUSCULAR VOLUME 94 fL (76-96); MEAN PLATELET VOLUME 10.8 fL (6.0-10.0); MONOCYTES ABSOLUTE AUTO 0.74 K/uL (0.20-0.80); MONOCYTES PERCENT AUTO 9.4 % (3.0-10.0); NEUTROPHILS ABSOLUTE AUTO 5.15 K/uL (2.00-7.50); NEUTROPHILS PERCENT AUTO 65.2 % (45.0-70.0); PLATELET COUNT,PLT 151 K/uL (150-400); RED BLOOD CELL COUNT 4.82 M/uL (4.50-6.50); RED CELL DISTRIBUTION WIDTH 14.2 % (11.0-16.0); WHITE BLOOD CELL COUNT,WBC 7.9 K/uL (4.0-11.0)
[2023-02-06 14:40] LABS: SQUAMOUS EPITHELIAL CELLS,UR RARE /HPF; WBC,URINE 0-5 /HPF
[2023-02-06 14:41] LABS: AMPHETAMINES SCREEN, URINE NEGATIVE (NEGATIVE); BARBITURATE SCREEN,URINE NEGATIVE (NEGATIVE); BENZODIAZEPINES SCREEN,URINE NEGATIVE (NEGATIVE); METHADONE SCREEN, URINE NEGATIVE (NEGATIVE); METHAMPHETAMINES SCREEN, URINE NEGATIVE (NEGATIVE); OXYCODONE SCREEN,URINE NEGATIVE (NEGATIVE); THC SCREEN,URINE 50 NG/ML NEGATIVE (NEGATIVE)
[2023-02-06 14:46] LABS: A/G RATIO 1.2 (0.8-2.0); ALBUMIN 3.6 g/dL (3.4-5.0); ANION GAP 15.5 mmol/L (5.0-15.0); BILIRUBIN TOTAL 0.6 mg/dL (0.0-1.0); BUN/CREATININE RATIO 23.2 (6-25); CALCIUM 9.1 mg/dL (8.5-10.1); CARBON DIOXIDE,CO2 28.7 mmol/L (21.0-32.0); CREATININE 0.69 mg/dL (0.70-1.30); EST CRCL DRUG DOSING (CG) 130.97 mL/min; POTASSIUM,K 4.2 mmol/L (3.5-5.1); PROTEIN TOTAL,TP 6.6 g/dL (6.4-8.2)
[2023-02-06] MEDS ORDERED: LORazepam 1 MG Tab PO ONE (15:17)
[2023-02-06] MEDS ORDERED: Gabapentin 300 MG Cap ONE (15:30)
[2023-02-06] MEDS ORDERED: Metoprolol Tartrate 25 MG Tab ONE (15:30)
[2023-02-06 16:15] VITALS: BP 173/89; PULSE 80
== END 2023-02-06 15:45 | disposition home or self-care (01) ==
LOC: LB.ED 13:40
DX: F10.239 Alcohol dependence with withdrawal, unspecified (principal); F17.210 Nicotine dependence, cigarettes, uncomplicated; E78.00 Pure hypercholesterolemia, unspecified; I10 Essential (primary) hypertension; Z95.5 Presence of coronary angioplasty implant and graft; Z79.82 Long term (current) use of aspirin; Z79.899 Other long term (current) drug therapy
CPT/HCPCS: 36415; 80053; 80307; 81001; 84484; 85025; 93005; 99285; A9270-GY; J7030

== ENCOUNTER 2023-07-06 17:25 | Emergency (ER) | payer MEDICAID, OTHER ==
[2023-07-06] MEDS ORDERED: Sodium Chloride 0.9% 10 ML Syringe FLUSH PRN (17:52)
[2023-07-06] MEDS: Aspirin 81 MG Tab.Chew PO ONE (17:58)
[2023-07-06] MEDS: LORazepam 2 MG/ML SDV IVPUSH ONE (18:09)
[2023-07-06] MEDS: Sodium Chloride 0.9% 1,000 ML IV SCH (18:15)
[2023-07-06 18:36] LABS: AMPHETAMINES SCREEN, URINE NEGATIVE (NEGATIVE); BARBITURATE SCREEN,URINE NEGATIVE (NEGATIVE); BENZODIAZEPINES SCREEN,URINE NEGATIVE (NEGATIVE)
[2023-07-06 18:37] LABS: OXYCODONE SCREEN,URINE NEGATIVE (NEGATIVE); THC SCREEN,URINE 50 NG/ML NEGATIVE (NEGATIVE)
[2023-07-06 18:38] LABS: METHADONE SCREEN, URINE NEGATIVE (NEGATIVE); METHAMPHETAMINES SCREEN, URINE POSITIVE (NEGATIVE)
[2023-07-06 18:43] LABS: A/G RATIO 1.1 (0.8-2.0); ALBUMIN 3.3 g/dL (3.4-5.0); ANION GAP 13.2 mmol/L (5.0-15.0); BILIRUBIN TOTAL 0.3 mg/dL (0.0-1.0); CREATININE 0.84 mg/dL (0.70-1.30); EST CRCL DRUG DOSING (CG) 106.84 mL/min; MAGNESIUM 1.7 mg/dL (1.8-2.4); PHOSPHORUS 3.3 mg/dL (2.5-4.9); POTASSIUM,K 4.2 mmol/L (3.5-5.1); PROTEIN TOTAL,TP 6.2 g/dL (6.4-8.2)
[2023-07-06 22:47] VITALS: BP 163/82; PULSE 76
== END 2023-07-06 22:40 | disposition home or self-care (01) ==
LOC: LB.ED 17:25
DX: R07.89 Other chest pain (principal); F15.20 Other stimulant dependence, uncomplicated; E78.00 Pure hypercholesterolemia, unspecified; I10 Essential (primary) hypertension; Z79.899 Other long term (current) drug therapy; Z95.5 Presence of coronary angioplasty implant and graft
CPT/HCPCS: 36415; 71045; 80053; 80307; 83735; 84100; 84484; 85379; 93005; 93010; 96374; 99283; 99285-25; A9270-GY; J2060; J7030

== ENCOUNTER 2023-12-22 23:39 | Emergency (ER) | payer MEDICAID ==
[2023-12-23] MEDS: Sodium Chloride 0.9% 1,000 ML IV SCH (00:35)
[2023-12-23] MEDS ORDERED: diazePAM 5 MG/ML MDV ONE (00:49)
[2023-12-23] MEDS ORDERED: Cyanocobalamin (Vitamin B12) 1,000 MCG Tab ONE (00:50)
[2023-12-23] MEDS ORDERED: Folic Acid 1 MG Tab ONE (00:50)
[2023-12-23] MEDS ORDERED: Thiamine 100 MG Tab ONE (00:50)
[2023-12-23] MEDS ORDERED: Metoprolol Tartrate 25 MG Tab ONE (00:52)
[2023-12-23] MEDS ORDERED: LORazepam 2 MG/ML SDV ONE ×2 (04:02→09:11)
[2023-12-23] MEDS ORDERED: Ondansetron 4 MG/2 ML SDV ONE (09:11)
[2023-12-23] MEDS: Lactated Ringers 1,000 ML IV SCH (09:20)
[2023-12-23] MEDS: Ondansetron 4 MG/2 ML SDV IVPUSH ONE (09:24)
[2023-12-23] MEDS: LORazepam 2 MG/ML SDV IVPUSH ONE (09:29)
[2023-12-23 11:53] LABS: POTASSIUM,K 3.5 mmol/L (3.5-5.1)
[2023-12-23 11:54] LABS: A/G RATIO 0.9 (0.8-2.0); ALBUMIN 3.2 g/dL (3.4-5.0); ANION GAP 12.1 mmol/L (5.0-15.0); BILIRUBIN TOTAL 0.7 mg/dL (0.0-1.0); BUN/CREATININE RATIO 11.2 (6-25); CALCIUM 8.2 mg/dL (8.5-10.1); CARBON DIOXIDE,CO2 30.4 mmol/L (21.0-32.0); CREATININE 0.89 mg/dL (0.70-1.30); EST CRCL DRUG DOSING (CG) 97.49 mL/min; PROTEIN TOTAL,TP 6.6 g/dL (6.4-8.2)
[2023-12-23 11:55] LABS: TROPONIN I HIGH SENSITIVITY 14.4 pg/ml (<=60.4)
[2023-12-23 11:56] LABS: HEMATOCRIT 42.5 % (40.0-54.0); HEMOGLOBIN 14.9 g/dL (13.0-18.0); LYMPHOCYTES PERCENT AUTO 31.7 % (20.0-40.0); MEAN CORPUSCULAR HGB CONC 35.1 g/dL (31.0-35.0); MEAN CORPUSCULAR VOLUME 88 fL (76-96); NEUTROPHILS PERCENT AUTO 56.9 % (45.0-70.0); RED BLOOD CELL COUNT 4.81 M/uL (4.50-6.50); RED CELL DISTRIBUTION WIDTH 14.3 % (11.0-16.0); WHITE BLOOD CELL COUNT,WBC 7.1 K/uL (4.0-11.0)
[2023-12-23 11:57] LABS: BASOPHILS ABSOLUTE AUTO 0.03 K/uL (0.02-0.10); BASOPHILS PERCENT AUTO 0.4 % (0.0-0.5); EOSINOPHILS ABSOLUTE AUTO 0.24 K/uL (0.04-0.40); EOSINOPHILS PERCENT AUTO 3.4 % (1.0-5.0); LYMPHOCYTES ABSOLUTE AUTO 2.25 K/uL (1.50-4.00); MONOCYTES ABSOLUTE AUTO 0.54 K/uL (0.20-0.80); MONOCYTES PERCENT AUTO 7.6 % (3.0-10.0); NEUTROPHILS ABSOLUTE AUTO 4.04 K/uL (2.00-7.50)
[2023-12-23 11:58] LABS: PLATELET COUNT,PLT 91 K/uL (150-400)
[2023-12-23 12:11] LABS: MEAN PLATELET VOLUME 11.1 fL (6.0-10.0)
[2023-12-23] MEDS ORDERED: chlordiazePOXIDE 25 MG Cap ONE ×3 (13:21→18:07)
[2023-12-23] MEDS: chlordiazePOXIDE 25 MG Cap PO SCH (13:36)
[2023-12-23] MEDS ORDERED: Omeprazole 20 MG Cap.CR ONE (16:00)
[2023-12-23] MEDS ORDERED: Ondansetron 4 MG Tab.DIS ONE (16:00)
[2023-12-23] MEDS: GI Cocktail Oral Solution 30 ML PO ONE (16:25)
[2023-12-23 17:33] LABS: LIPASE 45 U/L (16-77); TROPONIN I HIGH SENSITIVITY 10.6 pg/ml (<=60.4)
[2023-12-23 17:40] LABS: ETHANOL BLOOD MEDICAL < 3.0 mg/dL (<3.0)
[2023-12-23 18:01] VITALS: BP 156/76; PULSE 83
[2023-12-23] MEDS: chlordiazePOXIDE 25 MG Cap PO ONE ×2 (18:14)
== END 2023-12-23 18:30 | disposition home or self-care (01) ==
LOC: LB.ED 23:39
DX: F10.230 Alcohol dependence with withdrawal, uncomplicated (principal); I10 Essential (primary) hypertension; E78.00 Pure hypercholesterolemia, unspecified; K21.9 Gastro-esophageal reflux disease without esophagitis; Z79.899 Other long term (current) drug therapy; Z95.5 Presence of coronary angioplasty implant and graft; Z79.82 Long term (current) use of aspirin; Z79.1 Long term (current) use of non-steroidal anti-inflammatories (NSAID)
CPT/HCPCS: 36415; 71045; 80053; 80307; 83690; 84484; 85025; 93005; 96361; 96374; 96375; 99285-25; A9270-GY; J2060; J2405; J7030; J7120; Q0162